=== PATIENT | female | born 1980 | race Caucasian/White ===

== ENCOUNTER 2017-03-23 22:10 | Inpatient (IN) ==
[2017-03-23] MEDS ORDERED: ALBUTEROL 2.5 MG/3 ML NEB RESP TX SCH (23:45)
[2017-03-23] MEDS ORDERED: ONDANSETRON 4 MG/2 ML VIAL IV STA (23:48)
[2017-03-23] MEDS ORDERED: ASPIRIN 325 MG TABLET PO STA (23:48)
[2017-03-23] MEDS ORDERED: FUROSEMIDE 100 MG/10 ML VIAL IV STA (23:48)
[2017-03-23] MEDS ORDERED: NITROGLYCERIN 2% OINT 1 INCH/GM PACK TOP STA (23:48)
[2017-03-23] MEDS ORDERED: cefTRIAXone 1,000 MG in SODIUM CHLORIDE 0.9% 100 ML IV STA (23:48)
[2017-03-23] MEDS ORDERED: methylPREDNISolone SOD SUC 125 MG/2 ML VIAL IV STA (23:48)
[2017-03-24] MEDS ORDERED: cefTRIAXone 1,000 MG VIAL ONE (00:36)
[2017-03-24] MEDS ORDERED: FUROSEMIDE 100 MG/10 ML VIAL ONE (00:36)
[2017-03-24] MEDS ORDERED: ONDANSETRON 4 MG/2 ML VIAL ONE (00:36)
[2017-03-24] MEDS ORDERED: NITROGLYCERIN 2% OINT 1 INCH/GM PACK TOP ONE (00:36)
[2017-03-24] MEDS ORDERED: methylPREDNISolone SOD SUC 125 MG/2 ML VIAL ONE (00:37)
[2017-03-24] MEDS ORDERED: ASPIRIN 325 MG TABLET ONE (00:37)
[2017-03-24 01:28] LABS: Basophils % 0.2 % (0.0-0.8); Eosinophils # 0.2 10*3/uL (0.0-0.87); Eosinophils % 1.5 % (0.00-10.9); Hematocrit 42.4 VOL% (35.7-47.0); Hemoglobin 14.2 GM/DL (12.0-16.0); Immature Granulocytes % 0.3 %; Immature Granulocytes Absolute 0.04 #; Lymphocytes # 5.1 10*3/uL (1.4-4.0); Lymphocytes % 41.3 % (21.3-54.2); Mean Corpuscular HGB Conc 33.5 GM/DL (32-36); Mean Corpuscular Hemoglobin 29 PG (27-34); Mean Corpuscular Volume 85.8 FL (87-102); Mean Platelet Volume 10.3 FL (9.6-12.0); Monocytes % 7.9 % (1.7-12.7); Neutrophils % 48.8 % (38.7-73.9); Platelet Count 263 T/CUMM (130-400); Red Blood Count 4.94 MC/CUMM (3.8-5.5); White Blood Count 12.3 T/CUMM (4-12)
[2017-03-24 01:59] LABS: Alanine Aminotransferase 36 U/L (13-56); Albumin 3.6 G/DL (3.4-5.0); Alkaline Phosphatase 105 U/L (45-117); Aspartate Amino Transferase 22 U/L (0-37); Bilirubin,Total < 0.39 MG/DL (0.2-1.0); Blood Urea Nitrogen 11 MG/DL (7-18); Calcium 8.8 MG/DL (8.5-10.1); Glucose 105 MG/DL (74-106); Magnesium 2.2 MG/DL (1.8-2.4); Osmolality,Calculated 281.1 MOS/KG (273-304); Potassium 3.8 MMOL/L (3.5-5.1); Sodium 142 MMOL/L (136-145); Total Protein 7.5 G/DL (6.4-8.3); Troponin I Only < 0.015 NG/ML (0.00-0.045)
[2017-03-24 02:57] LABS: Apearance,Urine CLEAR (Clear); Bacteria,Urine Occasional /HPF (Few); Bilirubin,Urine Negative (Negative); Blood, Urine Negative (Negative); Glucose,Urine (UA) Negative (Negative); Ketones,Urine Negative (Negative); Mucus,Urine Occasional /LPF (Occasional); Nitrite,Urine Negative (Negative); Protein,Urine Negative; Squamous Epithelial Cell,Urine Occasional /HPF (0-10); Urine Color Yellow (Yellow); Urine Specific Gravity 1.011 (1.001-1.035); Urine Urobilinogen < 2.0 EU/DL (0.2-1.0); WBC,Urine <1 /HPF (0-6)
[2017-03-24 02:58] LABS: Barbiturates Screen,Urine Negative (Negative); Benzodiazepines Screen,Urine Negative (Negative); Cannabinoid Screen,Urine Negative (Negative); Opiate Screen,Urine Negative (Negative); Phencyclidine Screen,Urine Negative (Negative)
[2017-03-24] MEDS ORDERED: ALBUTEROL 2.5 MG/3 ML NEB RESP TX PRN (03:09)
[2017-03-24] MEDS ORDERED: ONDANSETRON 4 MG/2 ML VIAL IV PRN (03:18)
[2017-03-24] MEDS ORDERED: DEXTROMETHORPHAN ER 6 MG/ML 90 ML/BOTTLE PO PRN (03:25)
[2017-03-24] MEDS ORDERED: methylPREDNISolone SOD SUC 125 MG/2 ML VIAL IV SCH (03:30)
[2017-03-24] MEDS ORDERED: ALBUTEROL 2.5 MG/3 ML NEB RESP TX ONE (04:00)
[2017-03-24] MEDS: KETOROLAC 30 MG/1 ML VIAL IV PRN ×3 (06:16→22:43)
[2017-03-24] MEDS: ALBUTEROL 2.5 MG/3 ML NEB RESP TX SCH ×3 (07:01→19:42)
[2017-03-24] MEDS: ENOXAPARIN 40 MG/0.4 ML SYRINGE SUBCUT SCH (09:56)
[2017-03-24] MEDS: NICOTINE 14 MG/24 HR PATCH TRANSDERM PRN (18:31)
[2017-03-24] MEDS: cefTRIAXone 1,000 MG in SYRINGE 1 EACH IV SCH (22:43)
[2017-03-25] MEDS: ALBUTEROL 2.5 MG/3 ML NEB RESP TX SCH ×4 (01:09→20:33)
[2017-03-25 07:35] LABS: Basophils % 0.1 % (0.0-0.8); Hematocrit 39.6 VOL% (35.7-47.0); Hemoglobin 13.5 GM/DL (12.0-16.0); Immature Granulocytes % 0.4 %; Immature Granulocytes Absolute 0.08 #; Lymphocytes % 16.9 % (21.3-54.2); Mean Corpuscular HGB Conc 34.1 GM/DL (32-36); Mean Corpuscular Hemoglobin 29 PG (27-34); Mean Corpuscular Volume 85.2 FL (87-102); Mean Platelet Volume 10.8 FL (9.6-12.0); Monocytes # 1.4 10*3/uL (0.11-0.8); Monocytes % 7.6 % (1.7-12.7); Neutrophils # 13.4 10*3/uL (1.4-7.4); Platelet Count 274 T/CUMM (130-400); Red Blood Count 4.65 MC/CUMM (3.8-5.5); Red Cell Distribution Width 13.4 % (9.3-17.3); White Blood Count 17.9 T/CUMM (4-12)
[2017-03-25 08:07] LABS: Calcium 9.5 MG/DL (8.5-10.1); Magnesium 2.4 MG/DL (1.8-2.4); Osmolality,Calculated 284.1 MOS/KG (273-304); Potassium 4.2 MMOL/L (3.5-5.1)
[2017-03-25] MEDS: ENOXAPARIN 40 MG/0.4 ML SYRINGE SUBCUT SCH (08:37)
[2017-03-25] MEDS: AZITHROMYCIN 250 MG TABLET PO SCH (08:38)
[2017-03-25] MEDS: predniSONE 20 MG TABLET PO SCH (08:38)
[2017-03-25] MEDS: SODIUM CHLORIDE 0.9% 1,000 ML IV SCH (08:39)
[2017-03-25 09:10] LABS: Lactic Acid 2.3 MMOL/L (0.4-2.0)
[2017-03-25] MEDS: cefTRIAXone 1,000 MG in SYRINGE 1 EACH IV SCH (20:55)
[2017-03-25] MEDS: NICOTINE 14 MG/24 HR PATCH TRANSDERM PRN (21:04)
[2017-03-26] MEDS: ALBUTEROL 2.5 MG/3 ML NEB RESP TX SCH ×3 (01:48→12:07)
[2017-03-26 06:40] LABS: Basophils % 0.1 % (0.0-0.8); Hematocrit 38.9 VOL% (35.7-47.0); Hemoglobin 12.7 GM/DL (12.0-16.0); Immature Granulocytes % 0.4 %; Immature Granulocytes Absolute 0.06 #; Lymphocytes # 4.2 10*3/uL (1.4-4.0); Lymphocytes % 30.3 % (21.3-54.2); Mean Corpuscular HGB Conc 32.6 GM/DL (32-36); Mean Corpuscular Hemoglobin 29 PG (27-34); Mean Corpuscular Volume 88.6 FL (87-102); Mean Platelet Volume 11.2 FL (9.6-12.0); Monocytes # 0.9 10*3/uL (0.11-0.8); Monocytes % 6.3 % (1.7-12.7); Neutrophils # 8.7 10*3/uL (1.4-7.4); Neutrophils % 62.9 % (38.7-73.9); Platelet Count 219 T/CUMM (130-400); Red Blood Count 4.39 MC/CUMM (3.8-5.5); Red Cell Distribution Width 13.6 % (9.3-17.3); White Blood Count 13.8 T/CUMM (4-12)
[2017-03-26 07:08] LABS: Calcium 8.9 MG/DL (8.5-10.1); Magnesium 2.2 MG/DL (1.8-2.4); Osmolality,Calculated 289.7 MOS/KG (273-304); Potassium 3.7 MMOL/L (3.5-5.1)
[2017-03-26] MEDS: AZITHROMYCIN 250 MG TABLET PO SCH (09:53)
[2017-03-26] MEDS: predniSONE 20 MG TABLET PO SCH (09:53)
[2017-03-26] MEDS: ENOXAPARIN 40 MG/0.4 ML SYRINGE SUBCUT SCH (09:53)
[2017-03-26] MEDS: SODIUM CHLORIDE 0.9% 1,000 ML IV SCH (10:50)
[2017-03-26] MEDS ORDERED: MONTELUKAST 10 MG TABLET PO SCH (11:00)
[2017-03-26 11:54] VITALS: BP 135/91
[2017-03-27] MEDS ORDERED: predniSONE 20 MG TABLET PO SCH ×2 (09:00)
== END 2017-03-26 13:14 | disposition home or self-care (01) | DRG 720 ==
LOC: N.EDINP 22:10 → N.ED 22:10 → N.2E 03-24 04:11
PROVIDERS: ADMIT Internal Medicine; ATTEND Internal Medicine

== ENCOUNTER 2017-06-05 22:31 | Observation (INO) ==
[2017-06-05] MEDS ORDERED: ONDANSETRON 4 MG/2 ML VIAL IV STA (23:42)
[2017-06-05] MEDS ORDERED: ASPIRIN 325 MG TABLET PO STA (23:42)
[2017-06-05] MEDS ORDERED: ALUM/MAG/SIMETH/LIDO VISC 1:1 30 ML BOTTLE PO STA (23:42)
[2017-06-05] MEDS ORDERED: NITROGLYCERIN 2% OINT 1 INCH/GM PACK TOP STA (23:42)
[2017-06-06] MEDS ORDERED: NITROGLYCERIN 2% OINT 1 INCH/GM PACK TOP ONE (00:01)
[2017-06-06] MEDS ORDERED: ASPIRIN 325 MG TABLET ONE (00:02)
[2017-06-06] MEDS ORDERED: ONDANSETRON 4 MG/2 ML VIAL ONE (00:02)
[2017-06-06] MEDS ORDERED: ALUM/MAG/SIMETH/LIDO VISC 1:1 30 ML BOTTLE PO ONE (00:02)
[2017-06-06 00:45] LABS: Apearance,Urine Slightly Hazy (Clear); Bilirubin,Urine Negative (Negative); Blood, Urine Negative (Negative); Glucose,Urine (UA) Negative (Negative); Ketones,Urine Negative (Negative); Mucus,Urine Few /LPF (Occasional); Nitrite,Urine Negative (Negative); Protein,Urine Negative; RBC,Urine 1 /HPF (0-4); Squamous Epithelial Cell,Urine Occasional /HPF (0-10); Urine Color Yellow (Yellow); Urine Specific Gravity 1.029 (1.001-1.035); WBC,Urine 1 /HPF (0-6)
[2017-06-06 00:48] LABS: PT Patient Result 10.7 SECS
[2017-06-06 00:51] LABS: Barbiturates Screen,Urine Negative (Negative); Benzodiazepines Screen,Urine Negative (Negative); Cannabinoid Screen,Urine Negative (Negative); Opiate Screen,Urine Negative (Negative); Phencyclidine Screen,Urine Negative (Negative)
[2017-06-06 01:00] LABS: Basophils % 0.2 % (0.0-0.8); Eosinophils # 0.1 10*3/uL (0.0-0.87); Eosinophils % 1.2 % (0.00-10.9); Hematocrit 39.1 VOL% (35.7-47.0); Hemoglobin 13.2 GM/DL (12.0-16.0); Immature Granulocytes % 0.3 %; Immature Granulocytes Absolute 0.03 #; Lymphocytes % 40.1 % (21.3-54.2); Mean Corpuscular HGB Conc 33.8 GM/DL (32-36); Mean Corpuscular Hemoglobin 29 PG (27-34); Mean Corpuscular Volume 86.5 FL (87-102); Mean Platelet Volume 11.7 FL (9.6-12.0); Monocytes # 0.8 10*3/uL (0.11-0.8); Monocytes % 7.7 % (1.7-12.7); Neutrophils % 50.5 % (38.7-73.9); Platelet Count 216 T/CUMM (130-400); Red Blood Count 4.52 MC/CUMM (3.8-5.5); Red Cell Distribution Width 13.2 % (9.3-17.3); White Blood Count 9.9 T/CUMM (4-12)
[2017-06-06 01:10] LABS: Alanine Aminotransferase 23 U/L (13-56); Albumin 3.6 G/DL (3.4-5.0); Alkaline Phosphatase 76 U/L (45-117); Aspartate Amino Transferase 19 U/L (0-37); Bilirubin,Total < 0.39 MG/DL (0.2-1.0); Blood Urea Nitrogen 25 MG/DL (7-18); Calcium 9.2 MG/DL (8.5-10.1); Glucose 96 MG/DL (74-106); Potassium 3.5 MMOL/L (3.5-5.1); Sodium 143 MMOL/L (136-145); Total Protein 6.9 G/DL (6.4-8.3)
[2017-06-06] MEDS ORDERED: ACETAMINOPHEN 325 MG TABLET PO PRN (02:54)
[2017-06-06] MEDS ORDERED: ONDANSETRON 4 MG/2 ML VIAL IV PRN (02:54)
[2017-06-06] MEDS ORDERED: KETOROLAC 15 MG/1 ML VIAL IV PRN (03:02)
[2017-06-06] MEDS ORDERED: NITROGLYCERIN SL 0.4 MG TABLET SL PRN (03:04)
[2017-06-06 04:40] LABS: Basophils % 0.1 % (0.0-0.8); Eosinophils # 0.2 10*3/uL (0.0-0.87); Eosinophils % 1.9 % (0.00-10.9); Hematocrit 35.5 VOL% (35.7-47.0); Hemoglobin 12.2 GM/DL (12.0-16.0); Immature Granulocytes % 0.3 %; Immature Granulocytes Absolute 0.02 #; Lymphocytes # 3.9 10*3/uL (1.4-4.0); Lymphocytes % 48.7 % (21.3-54.2); Mean Corpuscular HGB Conc 34.4 GM/DL (32-36); Mean Corpuscular Hemoglobin 29 PG (27-34); Mean Corpuscular Volume 84.9 FL (87-102); Mean Platelet Volume 11.3 FL (9.6-12.0); Monocytes # 0.7 10*3/uL (0.11-0.8); Monocytes % 8.2 % (1.7-12.7); Neutrophils # 3.2 10*3/uL (1.4-7.4); Neutrophils % 40.8 % (38.7-73.9); Platelet Count 200 T/CUMM (130-400); Red Blood Count 4.18 MC/CUMM (3.8-5.5); Red Cell Distribution Width 13.3 % (9.3-17.3); White Blood Count 7.9 T/CUMM (4-12)
[2017-06-06] MEDS ORDERED: hydrALAZINE 20 MG/1 ML VIAL IV PRN (05:02)
[2017-06-06 05:16] LABS: Calcium 8.9 MG/DL (8.5-10.1); Osmolality,Calculated 285.3 MOS/KG (273-304); Potassium 3.7 MMOL/L (3.5-5.1); Risk Ratio 6.91; Thyroid Stimulating Hormone 1.99 uIU/ml (0.358-3.74); VLDL CHOLESTEROL 42.4 MG/DL
[2017-06-06] MEDS ORDERED: ENOXAPARIN 40 MG/0.4 ML SYRINGE SUBCUT SCH (09:00)
[2017-06-06] MEDS ORDERED: PANTOPRAZOLE 40 MG TABLET PO SCH (09:00)
[2017-06-06 12:43] VITALS: BP 106/57
[2017-06-06] MEDS ORDERED: ATORVASTATIN 20 MG TABLET PO SCH (21:00)
== END 2017-06-06 15:35 | disposition home or self-care (01) ==
LOC: N.EDINP 22:31 → N.ED 22:31 → N.TELEN 06-06 03:20
PROVIDERS: ADMIT Internal Medicine; ATTEND Internal Medicine